=== PATIENT | male | born 1950 | race Caucasian/White ===

== ENCOUNTER 2022-01-07 06:32 | Day surgery (SDC) | payer OTHER ==
[2022-01-05 12:06] LABS: BASOPHILS % (AUTO) 0.8 % (0.0-5.0); EOSINOPHILS % (AUTO) 3.4 % (0.0-8.0); HEMATOCRIT 39.8 % (42-54); LYMPHOCYTES % (AUTO) 22.1 % (21.0-51.0); MEAN CORPUSCULAR HEMOGLOBIN 31.7 pg (27.0-33.0); MEAN CORPUSCULAR HGB CONC 32.7 g/dL (32.0-36.0); MEAN CORPUSCULAR VOLUME 97.1 fL (79-99); MONOCYTES % (AUTO) 10.7 % (3.0-13.0); NEUTROPHILS % (AUTO) 62.6 % (40.0-77.0); PLATELET COUNT (AUTO) 236 K/uL (130-400); RED CELL DISTRIBUTION WIDTH 13.1 % (11.0-15.5); WHITE BLOOD COUNT (AUTO) 9.7 K/uL (4.8-10.8)
[2022-01-05 12:19] LABS: CREATININE 0.9 mg/dL (0.5-1.5); INR 1.11 (0.85-1.15); POTASSIUM 4.1 mmol/L (3.5-5.1)
[2022-01-05 12:20] LABS: PARTIAL THROMBOPLASTIN TIME 29.9 SEC (26.3-35.5)
[2022-01-06 14:30] VITALS: BP 182/67
[2022-01-07] VITALS (13 sets, daily range): BP systolic 141–161; BP diastolic 61–78
[~2022-01-07] VITALS: Ht 172.7 cm; Wt 62.7 kg
[~2022-01-07 06:32] MED LIST: ALBU8.5H8 IH; BUDE10.2 IH; CEFAZOLIN SODIUM 1 GM VIAL IVP SCH; ETAN50CA SQ
[2022-01-07] MEDS ORDERED: BACITRACIN 28.4 GM OINT TP ONE (06:53)
[2022-01-07] MEDS ORDERED: LACTATED RINGERS 1000ML 1,000 ML IV ONE (07:00)
[2022-01-07] MEDS ORDERED: LIDOCAINE 1%-EPI 1:100,000 20 ML VIAL IJ SCH (07:00)
[2022-01-07] MEDS ORDERED: LIDOCAINE PF 100MG/5ML (2%) SYRINGE 5ML ONE (07:19)
[2022-01-07] MEDS ORDERED: SUCCINYLCHOLINE 200MG/10ML SYR ONE (07:19)
[2022-01-07] MEDS ORDERED: DEXAMETHASONE SOD PHOSPHATE 10MG/ML 1ML VIAL ONE (07:19)
[2022-01-07] MEDS ORDERED: FENTANYL CITRATE PF 50 MCG/1 ML 2ML VIAL ONE (07:20)
[2022-01-07] MEDS ORDERED: PROPOFOL 10 MG/ML 20ML VIAL IV ONE (07:20)
[2022-01-07] MEDS ORDERED: NEOSTIGMINE 5MG/5ML SYR IV ONE (07:20)
[2022-01-07] MEDS ORDERED: ROCURONIUM 10MG/1ML SYR 10 MG/ML ML ONE (07:20)
[2022-01-07] MEDS ORDERED: MIDAZOLAM HCL 1 MG/ML 2ML VIAL ONE (07:20)
[2022-01-07] MEDS ORDERED: ONDANSETRON 4MG INJ ONE (07:20)
[2022-01-07] MEDS ORDERED: LIDOCAINE 1%-EPI 1:100,000 20 ML VIAL IJ ONE (07:36)
[2022-01-07] MEDS ORDERED: GLYCOPYRROLATE 1 MG/5 ML SYRINGE ONE (08:42)
== END 2022-01-07 09:52 | disposition home or self-care (01) ==
LOC: DAH 06:32
PROVIDERS: ATTEND Otolaryngology Plastic Surgery within the Head & Neck
DX: C44.01 Basal cell carcinoma of skin of lip (principal); Z20.822 Contact with and (suspected) exposure to COVID-19; I10 Essential (primary) hypertension; I25.10 Atherosclerotic heart disease of native coronary artery without angina pectoris; Z79.01 Long term (current) use of anticoagulants; Z79.899 Other long term (current) drug therapy; Z88.8 Allergy status to other drugs, medicaments and biological substances
CPT/HCPCS: 11644; 36415; 71045; 80048; 85025; 85610; 85730; 87635; 88305; 88331; 88332; 93005; A4215; A4221; A4222; A4223; A4600; A4606; A4663; A4930; A6260; C9803; J0330; J0690; J1100; J2001; J2250; J2405; J2704; J2710; J3010; J3490 ×2; J7120